=== PATIENT | female | born 2000 | race Two or more races ===

== ENCOUNTER 2025-05-12 06:26 | Emergency (ER) | payer MEDICAID, SELFPAY ==
[2025-05-12 06:29] VITALS: BMI 44.6
[2025-05-12 06:37] VITALS: BP 133/84; PULSE 89; RESP 19; TEMP 36.9; O2SAT 98
--- NOTE | 2025-05-12 07:20 | PD.EDEAR ---
ED Ear RME/HPI General Chief complaint: General Adult/Misc Complain Stated complaint: EARING STUCK IN R EARLOBE Time Seen by Provider: 05/12/25 06:31 Arrival date/time: 05/12/25 06:26 This is a 25-year-old female that comes into the emergency room with complaints of earring stuck in right earlobe. It is the back of the earring stuck. Patient states it has been there for a long time. This morning patient states that she wanted it out so she came to the emergency room. Related Data Previous Rx's ?Medication ?Instructions ?Recorded ondansetron 4 mg disintegrating See Rx Instructions .Route 03/04/20 tablet .COMPLEX #20 tabs doxycycline hyclate 100 mg tablet 100 mg PO BID 7 days #14 tabs 05/12/25 ibuprofen 800 mg tablet 800 mg PO Q6H PRN pain #14 tabs 05/12/25 Allergies Allergy/AdvReac Type Severity Reaction Status Date / Time No Known Allergies Allergy Verified 05/12/25 06:32 Course Orders Category Date Time Status Doxycycline [Vibramycin] Med 05/12/25 09:11 Once 100 mg PO X1 ONE Ibuprofen Tab [Motrin Tab] Med 05/12/25 09:11 Once 800 mg PO X1 ONE Lidocaine 1% 20 ml [Xylocaine 1% 20 ML] Med 05/12/25 07:13 Discontinued 10 ml INFL X1 ONE Vital Signs Vital signs: Vital Signs Temperature 98.4 F 05/12/25 06:37 Pulse Rate 89 05/12/25 06:37 Respiratory Rate 19 05/12/25 06:37 Blood Pressure 133/84 H 05/12/25 06:37 Pulse Oximetry (%) 98 05/12/25 06:37 Oxygen Delivery Method Room Air 05/12/25 06:37 Ear MDM Narrative MDM Narrative:: I gave patient some lidocaine to right earlobe. I tried to push the back of the earring out with no success. I then had to make a small incision on each side of the earring in the shape of a cross and still nothing. It was deeply embedded in the ear. I then called to assist me. We made a incision at a 6:00 angle. We were then able to push some of the earring out and I grabbed the back of the ear ring with forceps and twisted it off. I spoke to patient at length. I got patient ready for sutures. Patient has a small approximately 3-4 mm incision I did tell her we could suture now or allow it to heal on its own. Patient would like to allow it to heal on its own and does not want sutures. I will treat patient with antibiotics. I gave patient her earring back. Earring came out intact. I put a nonadherent dressing to patient's ear. Patient told to come back to the emergency room if symptoms change or worsen. Medications / Prescriptions Medication administrations:: Medication Administration History Doxycycline Hyclate (Doxycycline 100 Mg Tablet) 100 mg PO X1 ONE Stop: 05/12/25 09:12 Ibuprofen (Ibuprofen Tab 400 Mg Tablet) 800 mg PO X1 ONE Stop: 05/12/25 09:12 Discontinued Medications Lidocaine HCl (Lidocaine Hcl 1% 20 Ml Vial) 10 ml INFL X1 ONE Stop: 05/12/25 07:14 Last Admin: 05/12/25 07:23 Dose: 10 ml Documented By: CLAYTON Discharge Plan Plan Patient Disposition: HOME (Self Care) Patient condition on transfer: Stable Prescriptions/Referrals Prescriptions/Med Rec: New doxycycline hyclate 100 mg tablet 100 mg PO BID 7 Days Qty: 14 0RF ibuprofen 800 mg tablet 800 mg PO Q6H PRN (Reason: pain) Qty: 14 0RF No Action ondansetron 4 mg tablet,disintegrating See Rx Instructions .Route .COMPLEX Qty: 20 0RF Rx Instructions: 1-2 tabs SL Q6-8 hours prn nausea / vomiting Referrals: Tiara Hughes PA-C [Primary Care Provider] - In 1 week Problem List Clinical Impression: Acute foreign body of earlobe Patient/Caregiver Discharge Instructions Discharge Activity: activity as tolerated Education Materials: ED EAR CANAL Foreign Body Additional Instructions: Follow up with primary provider in 1-2 days. Come back to ED if symptoms change or worsen. Keep area clean and dry. Print Language: Micronesian Stand Alone Forms: Nette Award Info., Patient Portal Info Letter RAE/ANUJ Supervising Physician RAE/ANUJ Supervising Physician: [email or web address]
[2025-05-12] MEDS: LIDOCAINE HCL 1% 20 ML VIAL 10 ML INFL (07:23)
[2025-05-12] MEDS: IBUPROFEN TAB 400 MG TABLET 800 MG PO (09:17)
[2025-05-12] MEDS: DOXYCYCLINE 100 MG TABLET PO (09:17)
== END 2025-05-12 09:25 | disposition home or self-care (01) ==
PROVIDERS: Emergency Provider Emergency Medicine; PCP Physician Assistant
DX: S00.451A Superficial foreign body of right ear, initial encounter (principal); W45.8XXA Other foreign body or object entering through skin, initial encounter
CPT/HCPCS: 10120; 99283; J3490; A9270